=== PATIENT | male | born 1985 | race Hispanic/Latino ===

== ENCOUNTER 2024-01-26 12:23 | Inpatient (IN) | payer OTHER ==
[~2024-01-26] VITALS: Ht 180.3 cm; Wt 78.5 kg
[2024-01-26] VITALS (10 sets, daily range): BP systolic 159–182; BP diastolic 112–127; PULSE 85–101; RESP 16–24; TEMP 100.4; O2SAT 97–98
[2024-01-26 13:28] LABS: MEAN CORPUSCULAR HEMOGLOBIN 28.4 pg (27.0-33.0); MEAN CORPUSCULAR HGB CONC 33.3 g/dL (32.0-36.0); MEAN CORPUSCULAR VOLUME 85.2 fL (79-99); RED BLOOD CELL COUNT(AUTO) 4.58 MIL/uL (4.50-6.20); RED CELL DISTRIBUTION WIDTH 14.1 % (11.0-15.5); WHITE BLOOD COUNT (AUTO) 7.7 K/uL (4.8-10.8)
[2024-01-26 13:36] LABS: CREATININE 0.7 mg/dL (0.5-1.3); POTASSIUM 3.3 mmol/L (3.5-5.1)
[2024-01-26 13:39] LABS: PROTHROMBIN TIME 10.8 SEC (9.6-11.6)
[2024-01-26 13:40] LABS: PARTIAL THROMBOPLASTIN TIME 26.8 SEC (26.3-35.5)
[2024-01-26] MEDS: KCL 20 MEQ ERTAB PO ONE (14:12)
[2024-01-26] MEDS: HYDRALAZINE 20MG/ML VIAL IV ONE (14:12)
[2024-01-26] MEDS: LORAZEPAM 2 MG/ML 1 ML VIAL IVP ONE (14:24)
[2024-01-26 14:29] LABS: ADD UA MICROSCOPIC YES; APPEARANCE,URINE CLEAR (CLEAR); BILIRUBIN,URINE NEGATIVE (NEGATIVE); COLOR,URINE COLORLESS (YELLOW); GLUCOSE, URINE (UA) NEGATIVE (NEGATIVE); KETONES,URINE NEGATIVE (NEGATIVE); LEUKOCYTE ESTERASE ,URINE NEGATIVE Leu/uL (NEGATIVE); NITRATE,URINE NEGATIVE (NEGATIVE); PH,URINE 6.5 (5.0-8.0); PROTEIN,URINE 10 mg/dL (NEGATIVE); UROBILINOGEN,URINE 0.2 mg/dL (0.2-1.0); WBC,URINE 0-1 /HPF (0-1)
[2024-01-26] MEDS ORDERED: PHARMACY COMMUNICATION MISC PRN ×2 (16:00→17:00)
[2024-01-26] MEDS: PANTOPRAZOLE 40 MG/VIAL IVP ONE (16:01)
[2024-01-26] MEDS: LORAZEPAM 2 MG/ML 1 ML VIAL IVP PRN (16:02)
[2024-01-26] MEDS ORDERED: COMPOUND IV REFRIGERATED 1 EACH IVSOLN MISC PRN (16:30)
[2024-01-26 17:00] LABS: AMPHET/METH SCREEN,URINE NEGATIVE (NEGATIVE); BARBITURATE SCREEN, URINE NEGATIVE (NEGATIVE); BENZODIAZEPINES SCREEN,URINE NEGATIVE (NEGATIVE); CANNABINOID SCREEN,URINE NEGATIVE (NEGATIVE); COCAINE SCREEN,URINE NEGATIVE (NEGATIVE); OPIATE SCREEN,URINE NEGATIVE (NEGATIVE); PHENCYCLIDINE SCREEN,URINE NEGATIVE (NEGATIVE)
[2024-01-26] MEDS ORDERED: POTASSIUM CHLORIDE 10% ELIXIR 20 MEQ/15 ML UDCUP PO PRN (17:00)
[2024-01-26 17:01] LABS: HEMOGLOBIN A1C 5.6 % (4.0-6.0)
[2024-01-26 17:02] LABS: HEMATOCRIT 36.9 % (42-54)
[2024-01-26] MEDS: PANTOPRAZOLE 40MG INJ 80 MG in 0.9%NACL 100ML 100 ML IVP SCH (17:15)
[2024-01-26] MEDS: OCTREOTIDE ACETATE 1,250 MCG in 0.9% NACL 250ML 250 ML IV SCH (17:15)
[2024-01-26 17:17] LABS: PROTHROMBIN TIME 10.8 SEC (9.6-11.6)
[2024-01-26 17:18] LABS: PARTIAL THROMBOPLASTIN TIME 26.5 SEC (26.3-35.5)
[2024-01-26] MEDS: THIAMINE HCL 100 MG, FOLIC ACID 1 MG, M.V.I. IV [ADULT] 10 ML in 0.9%NACL 1000ML 1,000 ML IV SCH (17:49)
[2024-01-26] MEDS: AMLODIPINE 5 MG TAB PO ONE (17:53)
[2024-01-26] MEDS: LABETALOL 20MG SYG IV STA (21:55)
[2024-01-26] MEDS: ACETAMINOPHEN 500 MG TABLET PO PRN (21:57)
[2024-01-26 22:42] LABS: HEMATOCRIT 36.1 % (42-54)
[2024-01-26] MEDS: CHLORDIAZEPOXIDE HCL 25 MG CAP PO PRN (23:07)
[2024-01-27] VITALS (24 sets, daily range): BP systolic 120–178; BP diastolic 79–122; PULSE 82–117; RESP 16–23; O2SAT 96–97
[2024-01-27] MEDS: HYDRALAZINE 20MG/ML VIAL IV PRN (00:08)
[2024-01-27] MEDS: ONDANSETRON 4MG INJ IVP PRN (02:46)
[2024-01-27 04:04] LABS: HEMATOCRIT 30.3 % (42-54)
[2024-01-27 07:12] LABS: CREATININE 0.7 mg/dL (0.5-1.3); MAGNESIUM 1.3 mg/dL (1.80-2.40); POTASSIUM 3.3 mmol/L (3.5-5.1)
[2024-01-27] MEDS: CEFTRIAXONE 2GM VIAL IVPB SCH (08:40)
[2024-01-27] MEDS: AMLODIPINE 5 MG TAB PO SCH (08:40)
[2024-01-27] MEDS: LOSARTAN 50 MG TABLET PO SCH (08:40)
[2024-01-27] MEDS ORDERED: AMLODIPINE 5 MG TAB PO SCH (09:00)
[2024-01-27] MEDS: MAGNESIUM 2GM PREMIX 50ML 50 ML IV PRN (11:22)
[2024-01-27] MEDS ORDERED: LIDOCAINE PF 100MG/5ML (2%) SYRINGE 5ML ONE (12:08)
[2024-01-27] MEDS ORDERED: PROPOFOL 10 MG/ML 20ML VIAL IV ONE (12:08)
[2024-01-27] MEDS: HYDRALAZINE 20MG/ML VIAL ONE (12:12)
[2024-01-27 14:08] LABS: HEMATOCRIT 39.5 % (42-54)
[2024-01-27] MEDS: LACTULOSE 20 GM/30 ML UDCUP PO ONE ×2 (15:16→16:41)
[2024-01-27] MEDS: KCL 20 MEQ ERTAB PO PRN (15:16)
[2024-01-27] MEDS: FLUCONAZOLE 100 MG TAB PO SCH (16:41)
[2024-01-27] MEDS: PEG 3350/NA SULF,BICARB,CL/KCL 4000 ML SOLN PO ONE (16:42)
[2024-01-27] MEDS ORDERED: PHARMACY COMMUNICATION MISC PRN (23:30)
[2024-01-27] MEDS: CHLORDIAZEPOXIDE HCL 25 MG CAP PO PRN (23:51)
[2024-01-28] VITALS (23 sets, daily range): BP systolic 106–163; BP diastolic 62–117; PULSE 69–91; RESP 15–19; O2SAT 98–99
[2024-01-28 03:44] LABS: BASOPHILS # (AUTO) 0.03 K/uL (0.00-0.20); BASOPHILS % (AUTO) 0.4 % (0.0-5.0); EOSINOPHILS # (AUTO) 0.06 K/uL (0.00-0.70); EOSINOPHILS % (AUTO) 0.9 % (0.0-8.0); HEMATOCRIT 36.3 % (42-54); IMMATURE GRANULOCYTE ABSOLUTE 0.02 K/uL (0-1); LYMPHOCYTES % (AUTO) 15.5 % (21.0-51.0); MEAN CORPUSCULAR HEMOGLOBIN 28.2 pg (27.0-33.0); MEAN CORPUSCULAR HGB CONC 32.5 g/dL (32.0-36.0); MEAN CORPUSCULAR VOLUME 86.8 fL (79-99); MONOCYTES # (AUTO) 0.6 K/uL (0.1-1.0); MONOCYTES % (AUTO) 8.8 % (3.0-13.0); NEUTROPHILS % (AUTO) 74.1 % (40.0-77.0); PLATELET COUNT (AUTO) 231 K/uL (130-400); RED BLOOD CELL COUNT(AUTO) 4.18 MIL/uL (4.50-6.20); RED CELL DISTRIBUTION WIDTH 14.3 % (11.0-15.5); WHITE BLOOD COUNT (AUTO) 6.7 K/uL (4.8-10.8)
[2024-01-28 04:15] LABS: BILIRUBIN,TOTAL 0.7 mg/dL (0.2-1.0); CREATININE 0.7 mg/dL (0.5-1.3); MAGNESIUM 1.9 mg/dL (1.80-2.40); PHOSPHORUS 3.1 mg/dL (2.5-4.9); POTASSIUM 3.5 mmol/L (3.5-5.1); TOTAL PROTEIN, SERUM 7.6 g/dL (6.0-8.3)
[2024-01-28] MEDS: LORAZEPAM 2 MG/ML 1 ML VIAL IVP PRN (04:27)
[2024-01-28] MEDS ORDERED: POTASSIUM CHLORIDE 20MEQ/100ML 100 ML IV PRN (05:00)
[2024-01-28] MEDS: POTASSIUM CHLORIDE 20MEQ/100ML 100 ML IV PRN (05:08)
[2024-01-28 09:04] LABS: HIV 1&2 ANTIBODY Non-Reactive (Negative)
[2024-01-28 09:05] LABS: HIV-1 p24 Antigen Non-Reactive (Negative)
[2024-01-28] MEDS: FLUCONAZOLE 200 MG/NS 100 ML 100 ML IV SCH (09:11)
[2024-01-28] MEDS: PANTOPRAZOLE 40 MG TAB DR PO SCH (09:11)
[2024-01-28] MEDS ORDERED: LIDOCAINE PF 100MG/5ML (2%) SYRINGE 5ML ONE (13:58)
[2024-01-28] MEDS ORDERED: PROPOFOL 10 MG/ML 20ML VIAL IV ONE (13:58)
[2024-01-28] MEDS ORDERED: MIDAZOLAM HCL 1 MG/ML 2ML VIAL ONE (14:32)
[2024-01-28] MEDS ORDERED: FENTANYL CITRATE PF 50 MCG/1 ML 2ML VIAL ONE (14:33)
[2024-01-28] MEDS: HYDROCORTISONE 25 MG SUPPOSITORY PR SCH (20:17)
[2024-01-29] VITALS (8 sets, daily range): BP systolic 131–140; BP diastolic 89–99; PULSE 79–93; RESP 18; O2SAT 98–99
[2024-01-29 03:49] LABS: BASOPHILS # (AUTO) 0.03 K/uL (0.00-0.20); BASOPHILS % (AUTO) 0.4 % (0.0-5.0); EOSINOPHILS # (AUTO) 0.21 K/uL (0.00-0.70); EOSINOPHILS % (AUTO) 3.1 % (0.0-8.0); HEMATOCRIT 35.8 % (42-54); IMMATURE GRANULOCYTE ABSOLUTE 0.03 K/uL (0-1); LYMPHOCYTES # (AUTO) 1.2 K/uL (1.0-4.8); LYMPHOCYTES % (AUTO) 17.4 % (21.0-51.0); MEAN CORPUSCULAR HEMOGLOBIN 29.2 pg (27.0-33.0); MEAN CORPUSCULAR HGB CONC 32.7 g/dL (32.0-36.0); MEAN CORPUSCULAR VOLUME 89.3 fL (79-99); MONOCYTES # (AUTO) 0.6 K/uL (0.1-1.0); MONOCYTES % (AUTO) 9.5 % (3.0-13.0); NEUTROPHILS # (AUTO) 4.7 K/uL (1.8-7.7); NEUTROPHILS % (AUTO) 69.2 % (40.0-77.0); PLATELET COUNT (AUTO) 191 K/uL (130-400); RED BLOOD CELL COUNT(AUTO) 4.01 MIL/uL (4.50-6.20); WHITE BLOOD COUNT (AUTO) 6.7 K/uL (4.8-10.8)
[2024-01-29 04:02] LABS: ALBUMIN 2.9 g/dL (3.5-5.0); BILIRUBIN,TOTAL 0.4 mg/dL (0.2-1.0); CREATININE 0.6 mg/dL (0.5-1.3); POTASSIUM 3.5 mmol/L (3.5-5.1); TOTAL PROTEIN, SERUM 7.3 g/dL (6.0-8.3)
[2024-01-29] MEDS: POLYETHYLENE GLYCOL 3350 17 GM POWD.PACK PO SCH (08:15)
[2024-01-30 03:18] VITALS: BP 150/90; PULSE 66; RESP 18
[2024-01-30 03:22] LABS: BASOPHILS # (AUTO) 0.06 K/uL (0.00-0.20); BASOPHILS % (AUTO) 0.9 % (0.0-5.0); EOSINOPHILS # (AUTO) 0.23 K/uL (0.00-0.70); EOSINOPHILS % (AUTO) 3.4 % (0.0-8.0); HEMATOCRIT 37.3 % (42-54); IMMATURE GRANULOCYTE ABSOLUTE 0.02 K/uL (0-1); LYMPHOCYTES # (AUTO) 1.3 K/uL (1.0-4.8); LYMPHOCYTES % (AUTO) 19.9 % (21.0-51.0); MEAN CORPUSCULAR HEMOGLOBIN 29.1 pg (27.0-33.0); MEAN CORPUSCULAR HGB CONC 32.4 g/dL (32.0-36.0); MEAN CORPUSCULAR VOLUME 89.7 fL (79-99); MONOCYTES # (AUTO) 0.6 K/uL (0.1-1.0); MONOCYTES % (AUTO) 9.6 % (3.0-13.0); NEUTROPHILS # (AUTO) 4.4 K/uL (1.8-7.7); NEUTROPHILS % (AUTO) 65.9 % (40.0-77.0); PLATELET COUNT (AUTO) 211 K/uL (130-400); RED BLOOD CELL COUNT(AUTO) 4.16 MIL/uL (4.50-6.20); WHITE BLOOD COUNT (AUTO) 6.7 K/uL (4.8-10.8)
[2024-01-30 03:38] LABS: ALBUMIN 3.2 g/dL (3.5-5.0); BILIRUBIN,TOTAL 0.4 mg/dL (0.2-1.0); CREATININE 0.9 mg/dL (0.5-1.3); POTASSIUM 3.5 mmol/L (3.5-5.1); TOTAL PROTEIN, SERUM 7.8 g/dL (6.0-8.3)
[2024-01-30 07:00] VITALS: BP 147/106; PULSE 83; RESP 20
[2024-01-30 08:00] VITALS: O2SAT 100
[2024-01-30 11:00] VITALS: BP 136/95; PULSE 94; RESP 20
[2024-01-30] MEDS ORDERED: FLUC200T12 PO (13:11)
[2024-01-30] MEDS ORDERED: AMLO5TAB4 PO (13:11)
[2024-01-30] MEDS ORDERED: LOSA-418 PO (13:11)
[2024-01-30] MEDS ORDERED: PANT40TA PO (13:11)
== END 2024-01-30 13:56 | disposition home or self-care (01) | DRG 378 ==
LOC: EDH 12:23 → EDHIP 16:33 → 2CH 20:22 → 2AH 22:31
PROVIDERS: ADMIT Internal Medicine; ATTEND Internal Medicine
PROC: 0DB68ZX Excision of Stomach, Via Natural or Artificial Opening Endoscopic, Diagnostic (ICD-10-PCS; principal; 2024-01-27)
PROC: 0DJD8ZZ Inspection of Lower Intestinal Tract, Via Natural or Artificial Opening Endoscopic (ICD-10-PCS; 2024-01-28)
DX: K29.01 Acute gastritis with bleeding (principal); B37.81 Candidal esophagitis; F10.139 Alcohol abuse with withdrawal, unspecified; D62 Acute posthemorrhagic anemia; K57.31 Diverticulosis of large intestine without perforation or abscess with bleeding; K76.0 Fatty (change of) liver, not elsewhere classified; I10 Essential (primary) hypertension; M25.511 Pain in right shoulder; I15.8 Other secondary hypertension; F41.9 Anxiety disorder, unspecified; E66.9 Obesity, unspecified; F17.210 Nicotine dependence, cigarettes, uncomplicated; K22.9 Disease of esophagus, unspecified; I16.0 Hypertensive urgency; R44.1 Visual hallucinations; Z91.148 Patient's other noncompliance with medication regimen for other reason; Z80.42 Family history of malignant neoplasm of prostate; Z79.899 Other long term (current) drug therapy; K64.8 Other hemorrhoids; K74.60 Unspecified cirrhosis of liver; M70.31 Other bursitis of elbow, right elbow; Z82.49 Family history of ischemic heart disease and other diseases of the circulatory system; Z91.199 Patient's noncompliance with other medical treatment and regimen due to unspecified reason; Z68.24 Body mass index [BMI] 24.0-24.9, adult
CPT/HCPCS: 36415; 43239; 45378; 70450; 71045; 73030; 73080; 74176; 80048; 80053; 80305; 81001; 82270; 83036; 83735; 84100; 84145; 84443; 84484; 85014; 85018; 85025; 85027; 85610; 85730; 86701; 86850; 86900; 86901; 87040; 87390; 93005; G0378; J0360; J0696; J1450; J2001; J2060; J2250; J2354; J2405; J2470; J2704; J3010; J3411; J3475; J3480; J3490; J7030; J7050; A4215; A4222; A4223; A4620; A4657; A7002